=== PATIENT | female | born 1950 | race Caucasian/White ===

== ENCOUNTER 2021-07-06 07:20 | Day surgery (SDC) | payer MEDICARE, OTHER ==
[~2021-07-06] VITALS: Ht 177.8 cm; Wt 145.4 kg
--- NOTE | ~2021-07-06 | OR ---
[facility] [address], [place] [address] Draft DATE OF OPERATION: 07/06/2021 SURGEON: Erika Martinez MD PREOPERATIVE DIAGNOSES: 1. History of serrated adenoma of sigmoid colon 2001. 2. Diarrhea alternating with constipation. POSTOPERATIVE DIAGNOSIS: Normal-appearing colon to cecum. No evidence recurrent polyp or colitis. PROCEDURE: Total colonoscopy to cecum. ANESTHESIA: Intravenous sedation; fentanyl 100 mcg and Versed 6 mg. 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 She underwent colonoscopy by me in 2014, at which time she was found to have some diverticula as well as a polyp in the sigmoid, which was found to be a serrated adenoma. She currently has episodic diarrhea alternating with constipation. She is admitted for surveillance colonoscopy, understand the risks of bleeding, infection, perforation, and so on. FINDINGS: The prep was adequate. Complete colonoscopy was undertaken of the cecum without question. She had a few scattered diverticula of the sigmoid, but no evidence of polyp or recurrent polyp. DESCRIPTION OF PROCEDURE: The patient was brought to the endoscopy suite and placed in lateral decubitus position, given intravenous sedation to the point of slurred speech and nystagmus. Full cardiopulmonary monitoring was undertaken. Digital rectal examination was undertaken showing no sign of anorectal abnormality. An Olympus video colonoscope was passed in the rectum and manipulated throughout the colon ultimately intubating the cecum itself. The ileocecal valve and appendiceal orifice were normal. The scope was withdrawn from that point and examination throughout PATIENT NAME: GEE THOMAS OPERATIVE REPORT DATE OF : 52 REPORT #: [id number] PHYSICIAN: ERIKA MARTINEZ MD PCP: [facility] REPORT IS CONFIDENTIAL AND NOT TO BE RELEASED WITHOUT AUTHORIZATION [facility] [address] [place] [id number] Draft showed no sign of polyps or inflammation. There were a few diverticula of the sigmoid. She had no other abnormality. Retroflexed view was normal. Scope was removed and the patient was taken to the recovery room in good condition. CONCLUDING DIAGNOSIS: No evidence of recurrent polyp, minimal diverticular change. PLAN: Recommend high-fiber diet. Repeat colonoscopy in 10 years, sooner if clinically indicated. She will return to the ongoing care of KATHRYN Blakely at [facility]. MD GENO Garces/ARIADNA /[id number] cc: KATHRYN Blakely Copies: ~ PATIENT NAME: GEE THOMAS OPERATIVE REPORT DATE OF : 52 REPORT #: [id number] PHYSICIAN: ERIKA MARTINEZ MD PCP: [facility] MOORE REPORT IS CONFIDENTIAL AND NOT TO BE RELEASED WITHOUT AUTHORIZATION
[~2021-07-06 07:20] MED LIST: ASPIRIN EC81 MG PO; AZO STANDARD95 MG PO; CELEBREX200 MG PO; CEPHALEXIN500 MG PO; CIPRO500 MG PO; CRANBERRY200 MG PO; CYCLOBENZAPRINE10 MG; CYCLOBENZAPRINE10 MG PO; DOCUSATE SODIU100 MG PO; EPIDIOLEX100 MG/1 M; FERREX 150150 MG PO; FERROUS SULFAT325 MG PO; FOLIC ACID0.4 MG PO; GLUCOSAMINE CH1 EAC2 PO; HEPARIN SO5000 UNIT3 INJ; IRBESARTAN75 MG PO; JANUMET 50-1,01 EACH PO; KONDREMUL2.5 ML/5 M PO; LEVOTHYROXINE137 MCG PO; LEVOTHYROXINE200 MCG PO; LEXAPRO20 MG PO; LIPITOR20 MG PO; MIRAPEX0.25 MG PO; MOTRIN IB200 MG PO; NITROFURANTOIN100 MG PO; NORCO 5-325 TA1 EACH PO; OCUTABS TABLET1 EACH PO; PRILOSEC40 MG PO; PYRIDIUM200 MG PO; SENOKOT8.6 MG PO; SPIRONOLACTONE50 MG PO; TRAZODONE HCL300 MG PO; TYLENOL WITH C1 EACH PO; VITAMIN C500 M4 PO; VITAMIN D250000 UNIT PO; XANAX0.25 MG PO; XARELTO10 MG PO
[2021-07-06] MEDS ORDERED: TRULICITY0.75 MG/0. SQ (07:46)
== END 2021-07-06 10:04 | disposition home or self-care (01) ==
LOC: DS 07:20 → OPS 07:20 → DS 08:45 → OPS 08:45
PROVIDERS: ATTEND Surgery
PROC: 0DJD8ZZ Inspection of Lower Intestinal Tract, Via Natural or Artificial Opening Endoscopic (ICD-10-PCS; principal; 2021-07-06 08:45)
DX: R19.7 Diarrhea, unspecified (principal); K59.00 Constipation, unspecified; Z86.010 Personal history of colon polyps; K57.30 Diverticulosis of large intestine without perforation or abscess without bleeding; I10 Essential (primary) hypertension; K21.9 Gastro-esophageal reflux disease without esophagitis; E11.9 Type 2 diabetes mellitus without complications; E89.0 Postprocedural hypothyroidism; E66.01 Morbid (severe) obesity due to excess calories; G47.33 Obstructive sleep apnea (adult) (pediatric); Z96.651 Presence of right artificial knee joint; Z88.0 Allergy status to penicillin; Z88.2 Allergy status to sulfonamides; Z88.1 Allergy status to other antibiotic agents; Z79.84 Long term (current) use of oral hypoglycemic drugs; Z68.42 Body mass index [BMI] 45.0-49.9, adult
CPT/HCPCS: 99153; G0500; J2250; J3010; J7121